=== PATIENT | male | born 2000 | race African-American/Black ===

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

== ENCOUNTER 2020-05-12 17:22 | Inpatient (IN) | payer OTHER ==
[~2020-05-12 17:22] MED LIST: Iopamidol-370 76% 500 ML 1 ML ONE
[2020-05-12] MEDS ORDERED: Midazolam HCl 5 mg/ml Vial ONE (17:26)
[2020-05-12] MEDS ORDERED: Boostrix 0.5 ML (Tdap) VIAL ONE (17:26)
[2020-05-12] MEDS ORDERED: PROPOFOL 0 ML ONE (17:35)
[2020-05-12] MEDS ORDERED: Propofol 1,000 MG/100 ML VIAL IV ONE (17:35)
[2020-05-12] MEDS ORDERED: Fentanyl 100 MCG/2 ML VIAL ONE (17:38)
[2020-05-12 17:45] LABS: #Basophils 0.1 thou/uL (0.0-0.2); #Eosinphils 0.1 thou/uL (0.0-0.7); #Lymphocytes 2.8 thou/uL (1.20-3.40); #Monocytes 0.3 thou/uL (0.11-0.59); #Neutrophils 13.5 thou/uL (1.40-6.50); %Basophils 0.5 % (0.0-1.0); %Eosinophils 0.5 % (0.0-10.0); %Lymphocytes 16.5 % (28.0-48.0); %Monocytes 1.9 % (0.0-4.0); %Neutrophils 80.6 % (31.0-61.0); Hemoglobin 14.3 g/dL (14.0-18.0); Mean Corpuscular HGB CONC 32.8 g/dL (32.0-36.0); Mean Corpuscular Hemoglobin 30.9 pg (25.0-35.0); Mean Corpuscular Volume 94.2 fL (78.0-98.0); Mean Platelet Volume 9.7 fL (7.4-10.4); Platelet Count 172 thou/uL (130-400); RBC Distribution Width 11.1 % (11.5-14.5); Red Blood Cell (RBC) Count 4.64 mill/uL (4.00-5.20); White Blood Cell (WBC) Count 16.8 thou/uL (4.8-10.8)
[2020-05-12] MEDS ORDERED: fentaNYL Citrate/PF 2,000 MCG in Sodium Chloride 0.9% 60 ML IV SCH ×2 (17:45→18:45)
[2020-05-12 17:52] LABS: INR-International Normal Ratio 1.3; Prothrombin Time 16.1 sec (12.0-14.7)
[2020-05-12 17:53] LABS: PTT 27.2 sec (22.9-36.1)
[2020-05-12 18:10] LABS: ALT (SGPT) 204 U/L (8-55); AST (SGOT) 284 U/L (10-45); Albumin 4.2 g/dL (3.5-5.0); Alcohol Less than 10 mg/dL (Less than 10); Alkaline Phosphatase 73 U/L (50-130); Anion Gap 16 mmol/L (10-20); BUN (Urea Nitrogen) 11 mg/dL (8.4-21.0); Calc. Creatinine Clearance 0 mL/min (70-130); Calcium 8.4 mg/dL (7.8-10.44); Carbon Dioxide 21 mmol/L (22-29); Chloride 104 mmol/L (98-107); Globulin 3.6 g/dL (2.4-3.5); Glucose 245 mg/dL (70-105); Lipase 120 U/L (8-78); Protein, Total 7.8 g/dL (6.0-8.3); Sodium 138 mmol/L (136-145)
[2020-05-12 18:11] LABS: Actual Bicarbonate (HCO3a) 20.3 mEq/L (22-28); Analyzer IN Cardio ER; Base Excess (BEa) -5.9 mEq/L (-2.0 to +3.0); CO2 Tension 42.5 mmHg (35.0-45.0); Calcium, Ionized (arterial) 1.18 mmol/L (1.12-1.30); Carboxyhemoglobin (COHb) 0.3 gm% (0.0-3.0); O2 Tension (PaO2), arterial 80.7 mmHg (80.0-100.0); Potassium - ABG Lab 3.05 mmol/L (3.70-5.30); Puncture Site RFA
[2020-05-12 18:12] LABS: ALV-art Gradient 579.175 mmHg (0-20)
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
[2020-05-12] MEDS ORDERED: Dextrose 5% in Water 1,000 ML IV PRN (18:30)
[2020-05-12] MEDS ORDERED: Insulin Regular 300 UNITS/3 ML VIAL SC PRN (18:30)
[2020-05-12] MEDS ORDERED: hydrALAZINE 20 MG/ML VIAL SLOW IVP PRN (18:30)
[2020-05-12] MEDS ORDERED: Ondansetron PF 4 MG/2 ML Vial IVP PRN (18:30)
[2020-05-12] MEDS ORDERED: Dextrose 50% Abboject 50 ML SYRINGE SLOW IVP PRN (18:30)
[2020-05-12 18:37] LABS: Potassium 2.9 mmol/L (3.5-5.1)
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
[2020-05-12] MEDS ORDERED: Ventilator Sedation Protocol FS SCH (18:45)
[2020-05-12] MEDS ORDERED: DISCONTINUE PREVIOUS NARCOTIC PAIN MEDICATIONS AND BENZODIAZEPINES FS SCH (18:45)
[2020-05-12] MEDS ORDERED: Lorazepam 2 MG/ML VIAL SLOW IVP PRN (18:45)
[2020-05-12] MEDS ORDERED: Propofol BOLUS 1,000 MG/100 ML VIAL IV PRN (18:45)
[2020-05-12] MEDS ORDERED: Morphine 2 MG/ML VIAL SLOW IVP PRN (18:45)
[2020-05-12] MEDS ORDERED: Propofol 1,000 MG/100 ML VIAL IV PRN (18:45)
[2020-05-12] MEDS ORDERED: Fentanyl BOLUS 250 ML IVPB PRN (18:45)
[2020-05-12] MEDS ORDERED: Potassium Chloride 40 MEQ in Sodium Chloride 0.9% 250 ML 250 ML IVPB SCH (19:00)
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
[2020-05-12 19:15] LABS: Lactic Acid 1.8 mmol/L (0.5-2.2)
[2020-05-12 19:16] LABS: Magnesium 1.9 mg/dL (1.7-2.2); Phosphorus 4.1 mg/dL (2.3-4.7)
[2020-05-12 19:20] LABS: Bilirubin Negative (Negative); Blood, Urine 3+ (Negative); Clarity Turbid (Clear); Glucose, Urine (Dipstick) 150 mg/dL (Negative); Ketone, Urine 10 mg/dL (Negative); Leukocyte Negative Leu/uL (Negative); Nitrite Negative (Negative); Protein, Urine (Dipstick) 70 mg/dL (Neg-Trace); RBC/HPF Greater than 50 HPF (0-3); Squamous Epithelial None Seen HPF (0-3); Urobilinogen Normal mg/dL (Less than 2); pH, Urine 5.5 (5.0-9.0)
[2020-05-12 19:30] LABS: Bacteria/HPF 1+ HPF (None Seen); Specific Gravity, Urine 1.054 (1.002-1.036); Yeast-Budding None Seen HPF (None Seen)
[2020-05-12] MEDS: Sodium Chloride 0.9% 1,000 ML IV SCH (19:32)
[2020-05-12] MEDS ORDERED: Vecuronium 10 MG VIAL ONE (19:45)
[2020-05-12 20:14] LABS: SARS-CoV-2 NAA Rapid Test Not Detected (NotDetected)
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
[2020-05-12] MEDS: Famotidine/PF 20 mg/2ml Vial SLOW IVP SCH (21:11)
[2020-05-12 21:21] LABS: Bacteria/HPF None Seen HPF (None Seen); Bilirubin Negative (Negative); Blood, Urine 3+ (Negative); Clarity Turbid (Clear); Glucose, Urine (Dipstick) 30 mg/dL (Negative); Ketone, Urine Trace mg/dL (Negative); Leukocyte Negative Leu/uL (Negative); Nitrite Negative (Negative); Protein, Urine (Dipstick) 50 mg/dL (Neg-Trace); RBC/HPF Greater than 50 HPF (0-3); Squamous Epithelial None Seen HPF (0-3); Urobilinogen Normal mg/dL (Less than 2); pH, Urine 5.5 (5.0-9.0)
[2020-05-12 21:22] LABS: Specific Gravity, Urine Greater than 1.060 (1.002-1.036)
[2020-05-12 21:23] LABS: Urine Culture Reflex Yes Yes
[2020-05-12 21:25] LABS: Amphetamine Not Detected (NotDetected); Barbiturates Screen Not Detected (NotDetected); Benzodiazepine Screen Not Detected (NotDetected); Cocaine Metabolite Screen Not Detected (NotDetected); Medtox Control Line Valid? VALID (VALID); Medtox Reader # READER 4; Methadone Not Detected (NotDetected); Methamphetamine Not Detected (NotDetected); Opiate Screen Not Detected (NotDetected); Oxycodone Screen Not Detected (NotDetected); Phencyclidine (PCP) Not Detected (NotDetected); THC/Cannabinoid Screen Not Detected (NotDetected); Tricyclic Screen Not Detected (NotDetected)
[2020-05-13 01:57] VITALS: BMI 23.2
[2020-05-13 04:17] LABS: #Lymphocytes 1.6 thou/uL (1.20-3.40); #Monocytes 0.6 thou/uL (0.11-0.59); #Neutrophils 8.5 thou/uL (1.40-6.50); %Basophils 0.3 % (0.0-1.0); %Eosinophils 0.3 % (0.0-10.0); %Lymphocytes 14.5 % (28.0-48.0); %Monocytes 5.5 % (0.0-4.0); %Neutrophils 79.4 % (31.0-61.0); Hemoglobin 12.4 g/dL (14.0-18.0); Mean Corpuscular HGB CONC 34.2 g/dL (32.0-36.0); Mean Corpuscular Hemoglobin 31.7 pg (25.0-35.0); Mean Corpuscular Volume 92.6 fL (78.0-98.0); Mean Platelet Volume 10.1 fL (7.4-10.4); Platelet Count 137 thou/uL (130-400); RBC Distribution Width 11.1 % (11.5-14.5); Red Blood Cell (RBC) Count 3.91 mill/uL (4.00-5.20); White Blood Cell (WBC) Count 10.7 thou/uL (4.8-10.8)
[2020-05-13 04:34] LABS: Lactic Acid 1.2 mmol/L (0.5-2.2)
[2020-05-13 05:10] LABS: Anion Gap 14 mmol/L (10-20); BUN (Urea Nitrogen) 10 mg/dL (8.4-21.0); Calc. Creatinine Clearance 148 mL/min (70-130); Calcium 8.1 mg/dL (7.8-10.44); Carbon Dioxide 21 mmol/L (22-29); Chloride 108 mmol/L (98-107); Glucose 108 mg/dL (70-105); Magnesium 1.7 mg/dL (1.7-2.2); Potassium 3.8 mmol/L (3.5-5.1); Sodium 139 mmol/L (136-145)
--- NOTE | 2020-05-13 07:51 | CT ---
PRELIMINARY REPORT/DIRECT RADIOLOGY/EMERGENCY AFTER HOURS PROCEDURE: This report was discussed with Miguel Palacio RN by Tommy Matthews on May 13, 2020 04:57:00 WASTE REDUCTION COORDINATOR . Addendum electronically signed by Tommy Matthews on May 13, 2020 4:57:24 AM WASTE REDUCTION COORDINATOR EXAM: CT Head Without Intravenous Contrast. CLINICAL HISTORY: F/U [facility] TECHNIQUE: Axial computed tomography images of the head/brain without intravenous contrast. COMPARISON: CT\SR - CT BRAIN WO CON - 05/12/2020 05:48 PM WASTE REDUCTION COORDINATOR FINDINGS: BRAIN: Focal hyperdensity identified in the right frontal gyrus slightly more pronounced as compared to the previous examination. No midline shift or mass-effect is seen. The brainstem and cerebellum appear within normal limits. No significant volume loss is identified. VENTRICLES: No hydrocephalus. ORBITS: The orbits are unremarkable. SINUSES AND MASTOIDS: Mucosal sinus disease in the ethmoid and sphenoid sinuses. The remainder of th e sinuses and mastoid air cells appear clear. SOFT TISSUES: No significant facial or scalp soft tissue swelling evident. No radiopaque foreign body is seen. BONES: No acute skull fracture. IMPRESSION: Small subarachnoid hemorrhage in the right frontal gyrus, slightly more pronounced as com pared to the previous examination. Continued follow-up recommended. ELECTRONICALLY SIGNED BY: Andres Dale MD May 13, 2020 4:50:54 AM WASTE REDUCTION COORDINATOR FINAL REPORT CT BRAIN WITHOUT CONTRAST: History: Trauma. Subarachnoid hemorrhage. Comparison: CT brain prior day. Findings/impression: Concordant with the initial report. Similar right occipital condylar fracture. Transcribed Date/Time: 05/13/2020 8:06 AM
[2020-05-13] MEDS: Famotidine/PF 20 mg/2ml Vial SLOW IVP SCH ×2 (08:00→21:18)
[2020-05-13] MEDS ORDERED: Magnesium 2 GM/50 ML 2 GM in Premix Bag 1 BAG IVPB SCH (08:00)
[2020-05-13] MEDS ORDERED: Potassium Phosphate 15 MMOL in Sodium Chloride 0.9% 250 ML 250 ML IVPB SCH (08:00)
--- NOTE | 2020-05-13 08:21 | RAD ---
XR Chest 1 View Portable History: Chest tube Comparison: CT exam prior day Findings: Right thoracostomy tube in good position with tip near the apex. Pulmonary contusion or pne umothorax. Endotracheal tube tip at the clavicular level. Enteric tube tip below diaphragm although out of field of view. Impression: No significant pneumothorax post tube placement with partial resolution of the right hydr opneumothorax.
[2020-05-13 08:24] LABS: Actual Bicarbonate (HCO3a) 22.4 mEq/L (22-28); Base Excess (BEa) -0.7 mEq/L (-2.0 to +3.0); Calcium, Ionized (arterial) 1.14 mmol/L (1.12-1.30); Carboxyhemoglobin (COHb) 0.3 gm% (0.0-3.0); Hemoglobin (Hb) 12.7 g/dL (11.4-15.4); Potassium - ABG Lab 3.53 mmol/L (3.70-5.30); pH, Arterial 7.46 (7.35-7.45)
[2020-05-13 08:26] LABS: Puncture Site RRA
[2020-05-13] MEDS: Sodium Chloride 0.9% 1,000 ML IV SCH ×3 (09:00→17:08)
[2020-05-13] MEDS ORDERED: traMADol HCl 50 MG TAB PO PRN ×2 (09:47)
[2020-05-13] MEDS ORDERED: Morphine 4 MG/ML VIAL SLOW IVP PRN (09:49)
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
[2020-05-13] MEDS: Acetaminophen 325 MG TAB PO SCH ×3 (10:52→21:47)
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
[2020-05-13] MEDS: Gabapentin 300 MG CAP PO SCH ×2 (17:01→21:18)
[2020-05-13] MEDS: traMADol HCl 50 MG TAB PO SCH (17:53)
[2020-05-13] MEDS: Senokot S 8.6-50 MG TAB PO SCH (21:49)
[2020-05-13] MEDS: traMADol HCl 50 MG TAB PO PRN (21:51)
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
[2020-05-14] MEDS: Sodium Chloride 0.9% 1,000 ML IV SCH ×2 (02:24→04:53)
[2020-05-14] MEDS: traMADol HCl 50 MG TAB PO SCH ×6 (02:27→23:55)
[2020-05-14] MEDS: Acetaminophen 325 MG TAB PO SCH ×4 (05:09→21:55)
[2020-05-14 06:45] LABS: #Eosinphils 0.1 thou/uL (0.0-0.7); #Monocytes 0.5 thou/uL (0.11-0.59); #Neutrophils 6.8 thou/uL (1.40-6.50); %Basophils 0.2 % (0.0-1.0); %Eosinophils 1.3 % (0.0-10.0); %Lymphocytes 12.1 % (28.0-48.0); %Monocytes 5.6 % (0.0-4.0); %Neutrophils 80.7 % (31.0-61.0); Hemoglobin 10.7 g/dL (14.0-18.0); Mean Corpuscular HGB CONC 33.1 g/dL (32.0-36.0); Mean Corpuscular Hemoglobin 31.3 pg (25.0-35.0); Mean Corpuscular Volume 94.6 fL (78.0-98.0); Mean Platelet Volume 9.2 fL (7.4-10.4); Platelet Count 98 thou/uL (130-400); RBC Distribution Width 10.9 % (11.5-14.5); Red Blood Cell (RBC) Count 3.42 mill/uL (4.00-5.20); White Blood Cell (WBC) Count 8.5 thou/uL (4.8-10.8)
[2020-05-14 07:01] LABS: Phosphorus 2.9 mg/dL (2.3-4.7)
[2020-05-14 07:04] LABS: ALT (SGPT) 113 U/L (8-55); AST (SGOT) 92 U/L (10-45); Albumin 3.3 g/dL (3.5-5.0); Alkaline Phosphatase 56 U/L (50-130); Anion Gap 12 mmol/L (10-20); BUN (Urea Nitrogen) 6 mg/dL (8.4-21.0); Bilirubin, Total 1.1 mg/dL (0.2-1.2); Calc. Creatinine Clearance 163 mL/min (70-130); Carbon Dioxide 25 mmol/L (22-29); Chloride 103 mmol/L (98-107); Glucose 136 mg/dL (70-105); Potassium 4.1 mmol/L (3.5-5.1); Protein, Total 6.3 g/dL (6.0-8.3); Sodium 136 mmol/L (136-145)
[2020-05-14] MEDS: traMADol HCl 50 MG TAB PO PRN (07:46)
[2020-05-14] MEDS: Gabapentin 300 MG CAP PO SCH ×3 (08:05→21:52)
[2020-05-14] MEDS: Famotidine/PF 20 mg/2ml Vial SLOW IVP SCH ×2 (08:05→21:51)
[2020-05-14] MEDS: Senokot S 8.6-50 MG TAB PO SCH ×2 (08:05→21:51)
[2020-05-14] MEDS: Polyethylene Glycol 3350 17 GM Packet PO SCH (08:06)
[2020-05-14] MEDS: Cyclobenzaprine 10 MG TAB PO PRN ×2 (08:10→23:44)
--- NOTE | 2020-05-14 08:11 | RAD ---
Portable frontal chest radiograph: 05/14/2020 COMPARISON: 05/13/2020 HISTORY: Right chest tube FINDINGS: The endotracheal tube and nasogastric tube have been removed. Stable right chest tube and l eft vascular catheter. New mild hazy alveolar opacity noted within the medial left lung base. There is dense consolidative change within the mid and lower right hemithorax, worsened. There is a displac ed fracture of the midshaft right clavicle. There is pleural thickening in the right lung apex with pleural density in the right lung base as well. Stable small volume subcutaneous gas within the right chest wall. Multiple posterior medial right rib fractures, not optimally assessed on this exam. IMPRESSION: Worsening aeration within the mid and lower right hemithorax. Minimal new airspace diseas e in the medial left base. Stable lines and tubes.
[2020-05-14] MEDS ORDERED: PHOS-NAK 1 PKT PACK PO SCH (09:00)
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
[2020-05-14] MEDS: Lidocaine 5% Patch TD SCH (16:37)
--- NOTE | 2020-05-15 00:58 | PRG ---
DATE OF SERVICE: 05/14/2020 SUBJECTIVE: The patient was seen during evening rounds, awake, alert, playing on his iPad. The patient reports moderate pain in chest and ribs. The patient is still able to pull only 500 mL on his incentive spirometer. The patient reports increased pain when coughing. When using his incentive spirometer, it did cause the patient to cough deeply. The patient continues to cough up some blood. The patient was started on lidocaine patches earlier today. The patient's right chest tube is to suction. OBJECTIVE: VITAL SIGNS: Stable, afebrile. The patient is requiring 2 L nasal cannula. Urinary output is adequate for age and weight. PLAN: Continue supportive care and pain regimen. We will schedule the patient's tramadol 100 mg. If this does not control patient's pain, we may need to start patient on Tylenol with Codeine. Aggressive pulmonary toilet with the use of incentive spirometer every hour x10 while awake. Repeat labs in the morning. Increase physical and occupational therapy. Job ID: [id number]
[2020-05-15] MEDS: Lidocaine Patch Removal TOP SCH (03:00)
[2020-05-15] MEDS: Acetaminophen 325 MG TAB PO SCH ×4 (03:24→22:04)
[2020-05-15] MEDS: traMADol HCl 50 MG TAB PO SCH ×4 (06:22→23:11)
[2020-05-15 07:24] LABS: Hemoglobin 11.1 g/dL (14.0-18.0); Mean Corpuscular HGB CONC 33.6 g/dL (32.0-36.0); Mean Corpuscular Hemoglobin 31.7 pg (25.0-35.0); Mean Corpuscular Volume 94.3 fL (78.0-98.0); Mean Platelet Volume 9.7 fL (7.4-10.4); Platelet Count 104 thou/uL (130-400); RBC Distribution Width 10.8 % (11.5-14.5); Red Blood Cell (RBC) Count 3.51 mill/uL (4.00-5.20); White Blood Cell (WBC) Count 6.7 thou/uL (4.8-10.8)
[2020-05-15 07:45] LABS: Anion Gap 15 mmol/L (10-20); BUN (Urea Nitrogen) 8 mg/dL (8.4-21.0); Calc. Creatinine Clearance 169 mL/min (70-130); Calcium 8.7 mg/dL (7.8-10.44); Carbon Dioxide 28 mmol/L (22-29); Chloride 99 mmol/L (98-107); Glucose 94 mg/dL (70-105); Magnesium 1.9 mg/dL (1.7-2.2); Phosphorus 3.9 mg/dL (2.3-4.7); Potassium 4.5 mmol/L (3.5-5.1); Sodium 137 mmol/L (136-145)
[2020-05-15 08:32] LABS: Band 10 % (5-11); Eosinophils 4 % (0-10); Lymphocytes 22 % (28-48); Monocytes 7 % (0-4); Neutrophil 57 % (31-61); Platelet Morphology Comment Appears Decreased; Polychromasia SLIGHT = 2-3 cells (100X) (0-2/hpf)
[2020-05-15 08:33] LABS: MDiff Complete? YES
[2020-05-15] MEDS: Gabapentin 300 MG CAP PO SCH ×3 (08:49→22:00)
[2020-05-15] MEDS: Senokot S 8.6-50 MG TAB PO SCH ×2 (08:52→22:00)
[2020-05-15] MEDS: Polyethylene Glycol 3350 17 GM Packet PO SCH (08:52)
[2020-05-15] MEDS: Famotidine 20 MG TAB PO SCH ×2 (08:52→22:00)
--- NOTE | 2020-05-15 09:02 | RAD ---
PORTABLE CHEST: Date: 05/15/2020 HISTORY: Pulmonary contusion. COMPARISON: 05/14/2020 exam. FINDINGS: Heart size appears slightly enlarged. Some of this is related just to the lordotic technique. The ple ural and parenchymal lung changes in the right base are stable. The right chest tube is unchanged in position. Pleural changes in the right apex are similar to the previous exam. IMPRESSION: Stable overall exam. POS: OFF
[2020-05-15] MEDS ORDERED: Ibuprofen 600 MG TAB PO SCH (14:00)
[2020-05-15] MEDS: Lidocaine 5% Patch TD SCH (15:18)
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
[2020-05-15] MEDS: Ibuprofen 200 MG TAB PO SCH (22:00)
[2020-05-16] MEDS: Acetaminophen 325 MG TAB PO SCH ×4 (04:41→21:08)
[2020-05-16] MEDS: Lidocaine Patch Removal TOP SCH (04:46)
[2020-05-16] MEDS: Ibuprofen 200 MG TAB PO SCH ×3 (06:33→21:09)
[2020-05-16] MEDS: traMADol HCl 50 MG TAB PO SCH ×4 (06:34→23:20)
[2020-05-16] MEDS: Gabapentin 300 MG CAP PO SCH ×3 (08:50→20:20)
[2020-05-16] MEDS: Polyethylene Glycol 3350 17 GM Packet PO SCH (08:50)
[2020-05-16] MEDS: Senokot S 8.6-50 MG TAB PO SCH ×2 (08:50→20:20)
[2020-05-16] MEDS: Famotidine 20 MG TAB PO SCH (08:51)
--- NOTE | 2020-05-16 09:15 | RAD ---
CHEST 1 VIEW: Date: 05/16/2020 INDICATION: History of respiratory failure and tracheostomy. COMPARISON: Prior exam dated 05/15/2020. IMPRESSION: Pleural parenchymal opacity in the right lung base is stable. Left subclavian central venous catheter is unchanged. Right sided thoracostomy tube is unchanged. No large right-sided pneumothorax is evide nt. Left lung is clear. Osseous structures are unchanged. POS: [facility]
[2020-05-16] MEDS: Lidocaine 5% Patch TD SCH (15:07)
--- NOTE | 2020-05-16 16:15 | RAD ---
EXAM: CHEST ONE VIEW: 05/16/20 HISTORY: Follow-up chest tube removal. COMPARISON: 05/16/20 FINDINGS: There has been removal of the right chest tube. Small residual right apical pneumothorax. Left subcla vian catheter. Stable abnormal opacity changes in the right mid and lower lung zone. Comminuted displ aced mid lateral right clavicle fracture. IMPRESSION: 1. Right chest removal with small residual right apical pneumothorax. 2. Stable parenchymal changes in the right mid and lower lung zone. 3. Stable comminuted right clavicle fracture with inferior overriding. POS: OFF
--- NOTE | 2020-05-16 18:21 | CT ---
EXAM: CT brain without contrast HISTORY: Subarachnoid hemorrhage and increasing headache COMPARISON: 05/13/2020 TECHNIQUE: Multiple contiguous axial images were obtained and a CT of the brain without contrast. FINDINGS: There is a stable small amount of hyperdensity within one of the right frontal gyri consist ent with a small amount of subarachnoid hemorrhage. No intraventricular hemorrhage is seen. No midline shift or downward herniation is seen. There is a stable fracture of the right occipital condyle. Fluid is seen in the right sphenoid sinus and within some of the ethmoid air cells bilaterally. IMPRESSION: Stable subarachnoid hemorrhage.
[2020-05-16 18:50] LABS: #Eosinphils 0.1 thou/uL (0.0-0.7); #Lymphocytes 0.5 thou/uL (1.20-3.40); #Monocytes 0.4 thou/uL (0.11-0.59); #Neutrophils 4.3 thou/uL (1.40-6.50); %Basophils 0.3 % (0.0-1.0); %Eosinophils 1.3 % (0.0-10.0); %Lymphocytes 10.1 % (28.0-48.0); %Monocytes 7.7 % (0.0-4.0); %Neutrophils 80.7 % (31.0-61.0); Hemoglobin 10.6 g/dL (14.0-18.0); Mean Corpuscular HGB CONC 33.2 g/dL (32.0-36.0); Mean Corpuscular Volume 93.2 fL (78.0-98.0); Mean Platelet Volume 8.8 fL (7.4-10.4); Platelet Count 138 thou/uL (130-400); RBC Distribution Width 10.9 % (11.5-14.5); Red Blood Cell (RBC) Count 3.43 mill/uL (4.00-5.20); White Blood Cell (WBC) Count 5.3 thou/uL (4.8-10.8)
[2020-05-16] MEDS: Cyclobenzaprine 10 MG TAB PO PRN (20:21)
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
[2020-05-17] MEDS: Lidocaine Patch Removal TOP SCH (03:00)
[2020-05-17] MEDS: Acetaminophen 325 MG TAB PO SCH ×2 (03:22→11:08)
[2020-05-17 05:59] LABS: #Eosinphils 0.2 thou/uL (0.0-0.7); #Lymphocytes 1.1 thou/uL (1.20-3.40); #Monocytes 0.6 thou/uL (0.11-0.59); #Neutrophils 3.1 thou/uL (1.40-6.50); %Basophils 0.6 % (0.0-1.0); %Eosinophils 3.5 % (0.0-10.0); %Lymphocytes 21.7 % (28.0-48.0); %Monocytes 11.4 % (0.0-4.0); %Neutrophils 62.7 % (31.0-61.0); Hemoglobin 10.6 g/dL (14.0-18.0); Mean Corpuscular Hemoglobin 30.6 pg (25.0-35.0); Mean Corpuscular Volume 92.8 fL (78.0-98.0); Mean Platelet Volume 8.7 fL (7.4-10.4); Platelet Count 164 thou/uL (130-400); Red Blood Cell (RBC) Count 3.45 mill/uL (4.00-5.20)
[2020-05-17] MEDS: Ibuprofen 200 MG TAB PO SCH ×2 (06:27→13:27)
[2020-05-17] MEDS: traMADol HCl 50 MG TAB PO SCH ×2 (06:28→11:08)
[2020-05-17 06:29] LABS: Anion Gap 10 mmol/L (10-20); BUN (Urea Nitrogen) 16 mg/dL (8.4-21.0); Calc. Creatinine Clearance 167 mL/min (70-130); Calcium 8.9 mg/dL (7.8-10.44); Carbon Dioxide 31 mmol/L (22-29); Chloride 98 mmol/L (98-107); Glucose 106 mg/dL (70-105); Magnesium 2.1 mg/dL (1.7-2.2); Phosphorus 3.9 mg/dL (2.3-4.7); Potassium 4.3 mmol/L (3.5-5.1); Sodium 135 mmol/L (136-145)
[2020-05-17] MEDS: Polyethylene Glycol 3350 17 GM Packet PO SCH (08:26)
[2020-05-17] MEDS: Gabapentin 300 MG CAP PO SCH ×2 (08:26→13:57)
[2020-05-17] MEDS: Senokot S 8.6-50 MG TAB PO SCH (08:26)
[2020-05-17 08:36] VITALS: TEMP 98.5
[2020-05-17 11:57] VITALS: BP 133/75
[2020-05-17] MEDS: Lidocaine 5% Patch TD SCH (13:57)
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
== END 2020-05-17 14:00 | DRG 963 ==
LOC: ERS 17:22 → CCU 18:07 → SJJU 05-13 16:24
PROVIDERS: ADMIT Surgery; ATTEND Surgery
PROC: 0BH17EZ Insertion of Endotracheal Airway into Trachea, Via Natural or Artificial Opening (ICD-10-PCS; principal; 2020-05-12)
PROC: 5A1935Z Respiratory Ventilation, Less than 24 Consecutive Hours (ICD-10-PCS; 2020-05-12)
PROC: 0W9930Z Drainage of Right Pleural Cavity with Drainage Device, Percutaneous Approach (ICD-10-PCS; 2020-05-12)
PROC: 02HV33Z Insertion of Infusion Device into Superior Vena Cava, Percutaneous Approach (ICD-10-PCS; 2020-05-12)
DX: S27.0XXA Traumatic pneumothorax, initial encounter (principal); S06.6X9A Traumatic subarachnoid hemorrhage with loss of consciousness of unspecified duration, initial encounter; J96.00 Acute respiratory failure, unspecified whether with hypoxia or hypercapnia; R40.20 Unspecified coma; S22.41XA Multiple fractures of ribs, right side, initial encounter for closed fracture; S36.113A Laceration of liver, unspecified degree, initial encounter; S27.321A Contusion of lung, unilateral, initial encounter; E87.2 Acidosis; D62 Acute posthemorrhagic anemia; S37.011A Minor contusion of right kidney, initial encounter; S02.113A Unspecified occipital condyle fracture, initial encounter for closed fracture; J98.4 Other disorders of lung; E87.6 Hypokalemia; S42.021A Displaced fracture of shaft of right clavicle, initial encounter for closed fracture; E83.39 Other disorders of phosphorus metabolism; E83.42 Hypomagnesemia; R73.9 Hyperglycemia, unspecified; R40.2422 Glasgow coma scale score 9-12, at arrival to emergency department; Z20.828 Contact with and (suspected) exposure to other viral communicable diseases; V89.2XXA Person injured in unspecified motor-vehicle accident, traffic, initial encounter
CPT/HCPCS: 0240U; 31624; 36415; 36416; 36600; 51702; 70450; 70486; 70498; 71045; 71260; 72125; 72170; 74177; 80048; 80053; 80306; 80307; 81003; 81015; 82805; 83605; 83690; 83735; 84100; 85007; 85025; 85027; 85610; 85730; 86850; 86900; 86901; 87040; 87086; 90471; 90715; 93005; 94002; 94003; 94640; 94760; 96365; 96375; 96376; 99292; G0390; J0690; J1815; J2250; J2270; J2405; J2704; J3010; J3475; J3480; J3490; J7050; J7620; Q9967; S0028

== ENCOUNTER 2020-05-31 08:40 | Outpatient (CLI) | payer OTHER ==
--- NOTE | 2020-05-31 10:47 | RAD ---
CHEST 2 VIEWS: Date: 05/31/2020 HISTORY: Follow-up chest tube removal. FINDINGS: Heart size is normal. The left lung is clear. No evidence for pneumothorax. There is abnormal somewha t circumscribed homogeneous opacity changes in the right lower lobe. Given the circumscribed appearan ce of some of this density, this could represent some loculated pleural fluid, as well as some contin ued resolving pulmonary parenchymal disease from extensive prior contusion. IMPRESSION: Some persistent abnormal opacity changes in the right lower lobe, but showing considerable improvemen t. No pneumothorax. Stable left chest. Consider another short-term follow-up in 3-4 weeks. POS: AH
--- NOTE | 2020-05-31 10:52 | RAD ---
CERVICAL SPINE 4 VIEWS: Date: 05/31/2020 HISTORY: Follow-up occipital condyle fracture. Correlation made to CT cervical spine dated 05/12/2020 which described a fracture of the right occipi krys condyle. FINDINGS: The cervical vertebra maintain normal height and alignment. Disc spaces are preserved. No abnormality identified. The occipital condyle fracture described on prior CT is not apparent on this exam. IMPRESSION: Unremarkable cervical spine. POS: [facility]
== END 2020-05-31 08:41 | disposition home or self-care (01) ==
LOC: BICRAD 08:40
PROVIDERS: ATTEND Surgery
DX: S02.113A Unspecified occipital condyle fracture, initial encounter for closed fracture (principal); V89.2XXA Person injured in unspecified motor-vehicle accident, traffic, initial encounter
CPT/HCPCS: 71046; 72040

== ENCOUNTER 2020-06-04 07:47 | Outpatient (CLI) | payer OTHER ==
[2020-06-04 18:09] LABS: SARS-CoV-2 MS2 Positive; SARS-CoV-2 N Gene Negative; SARS-CoV-2 S Gene Negative; SARS-CoV-2 by NAA Not Detected (NotDetected); SARS-CoV-2 orf1ab Negative
== END 2020-06-04 07:48 | disposition home or self-care (01) ==
LOC: LABBT 07:47
PROVIDERS: ATTEND Orthopaedic Surgery
DX: Z01.812 Encounter for preprocedural laboratory examination (principal); Z20.822 Contact with and (suspected) exposure to COVID-19; S42.021A Displaced fracture of shaft of right clavicle, initial encounter for closed fracture
CPT/HCPCS: 87635; U0003

== ENCOUNTER 2020-06-07 10:08 | Day surgery (SDC) | payer OTHER ==
[2020-06-05 13:44] VITALS: BMI 22.4
[2020-06-07] MEDS ORDERED: Fentanyl 100 MCG/2 ML VIAL ONE (11:20)
[2020-06-07] MEDS ORDERED: Lidocaine 1% PF 5 ML VIAL ONE (12:07)
[2020-06-07] MEDS ORDERED: PROPOFOL 200 MG/20 ML VIAL ONE (12:07)
[2020-06-07] MEDS ORDERED: Rocuronium Bromide 10 MG/ML (10ML VIAL) ONE (12:07)
[2020-06-07] MEDS ORDERED: Dexamethasone 20 MG/5 ML VIAL ONE (12:07)
[2020-06-07] MEDS ORDERED: Ondansetron PF 4 MG/2 ML Vial ONE (12:07)
[2020-06-07] MEDS ORDERED: PHENYLEPHRINE-NS 100 MCG/ML 10 ML SYRINGE ONE (12:07)
[2020-06-07] MEDS ORDERED: Ketorolac Tromethamine 30 MG/ML VIAL ONE (12:07)
[2020-06-07] MEDS ORDERED: Bupivacaine PF 0.5% 30 ML VIAL ONE (12:48)
[2020-06-07] MEDS ORDERED: EPINEPHrine 1 MG/ML AMP ONE (12:48)
[2020-06-07] MEDS ORDERED: SUGAMMADEX SODIUM 200 MG/2 ML VIAL ONE (13:44)
--- NOTE | 2020-06-07 14:42 | RAD ---
RIGHT CLAVICLE TWO VIEWS: 06/07/20 HISTORY: Postop. These are C-arm views showing open reduction and internal fixation of a clavicle fracture with plate and screws. IMPRESSION: Open reduction internal fixation of clavicular fracture with plate and screws. POS: [facility]
--- NOTE | 2020-06-07 14:49 | OP ---
DATE OF PROCEDURE: 06/07/2020 PREOPERATIVE DIAGNOSIS: Midshaft fracture of the right clavicle. POSTOPERATIVE DIAGNOSIS: Midshaft fracture of the right clavicle. PROCEDURE PERFORMED: Open reduction and internal fixation, midshaft fracture, right clavicle. ANESTHESIA: General. TECHNIQUE: The patient was given preoperative IV antibiotics, taken to the operating room, placed in supine position. Satisfactory general anesthesia was performed. The patient was placed in a beach chair position and the right clavicular area was sterilely prepped and draped in usual fashion. An incision was made along the area of the clavicle approximately 4 inches in length and sharp dissection was made down to the shaft fractures. The proximal aspect of the clavicular shaft was displaced superiorly. The distal shaft was inferiorly and there was also butterfly fragment anterior to both of these. The scar tissue was loosened and incised and the fractures were then initially held reduced with a 2.7 cortical screw in a lag fashion. A six-hole [employer]ynthe[employer] clavicular plate was then placed over the superior portion of the clavicle and was internally fixed using 3.5 cortical screws on each side of the fracture and then three additional locking screws. The large butterfly fragment was freed up. The previous screw that was used in lag fashion was removed and a butterfly fragment was placed in its anatomic position and held in place using two 2.7 cortical screws in a lag fashion. Some of the bone fragments that were removed prior to internal fixation were cleaned up and placed into the fracture site for bone grafting. The wound was copiously irrigated with antibiotic solution. It was then closed using #1 Vicryl for the fascia and periosteum over the clavicle and then 2-0 Vicryl for the fat and subcutaneous tissue, and skin was closed with 3-0 Rapide. The wound was then infiltrated with a total of 20 mL 0.5% Marcaine with epinephrine. Sterile dressing was applied. The patient was awakened, extubated, and transferred to recovery room in stable condition. ESTIMATED BLOOD LOSS: 40 mL. COMPLICATIONS: None. Job ID: [id number]
[2020-06-07] MEDS ORDERED: HYDROcodone/Acetaminophen 5/325 mg Tablet ONE (15:13)
== END 2020-06-07 15:40 | disposition home or self-care (01) ==
LOC: SDC 10:08
PROVIDERS: ATTEND Orthopaedic Surgery
PROC: 0PS904Z Reposition Right Clavicle with Internal Fixation Device, Open Approach (ICD-10-PCS; principal; 2020-06-07)
DX: S42.021A Displaced fracture of shaft of right clavicle, initial encounter for closed fracture (principal); V89.2XXA Person injured in unspecified motor-vehicle accident, traffic, initial encounter
CPT/HCPCS: 76000; C1713; J0171; J0690; J3010; L3650; S0020

== ENCOUNTER 2020-06-22 09:33 | Outpatient (CLI) | payer OTHER ==
[2020-06-22] MEDS ORDERED: Iopamidol 370 76% 100 ML VIAL ONE (14:02)
== END 2020-06-22 09:34 | disposition home or self-care (01) ==
LOC: BICCT 09:33
PROVIDERS: ATTEND Family Medicine
DX: J94.2 Hemothorax (principal); I60.9 Nontraumatic subarachnoid hemorrhage, unspecified; S02.119D Unspecified fracture of occiput, subsequent encounter for fracture with routine healing; S12.401D Unspecified nondisplaced fracture of fifth cervical vertebra, subsequent encounter for fracture with routine healing; S36.113S Laceration of liver, unspecified degree, sequela; R91.8 Other nonspecific abnormal finding of lung field
CPT/HCPCS: 70450; 71046; 72125; 74160; Q9967

== ENCOUNTER 2020-07-27 09:29 | Outpatient (CLI) | payer OTHER ==
[2020-07-27 21:52] LABS: SARS-CoV-2 PCR by NAA Not Detected (NotDetected)
== END 2020-07-27 09:30 | disposition home or self-care (01) ==
LOC: LABBT 09:29
PROVIDERS: ATTEND Otolaryngology Plastic Surgery within the Head & Neck
DX: R13.10 Dysphagia, unspecified (principal); Z20.822 Contact with and (suspected) exposure to COVID-19
CPT/HCPCS: 87635; U0003; U0005

== ENCOUNTER 2020-07-30 09:02 | Outpatient (CLI) | payer OTHER | END 2020-07-30 09:03 | disposition home or self-care (01) | PROVIDERS: ATTEND Otolaryngology Plastic Surgery within the Head & Neck | DX: I69.191 Dysphagia following nontraumatic intracerebral hemorrhage (principal); I69.891 Dysphagia following other cerebrovascular disease; R13.10 Dysphagia, unspecified | CPT/HCPCS: 74230 ==

== ENCOUNTER 2020-10-26 15:14 | Emergency (ER) | payer SELFPAY ==
[2020-10-26] MEDS ORDERED: Ketorolac Tromethamine 30 MG/ML VIAL ONE (16:23)
== END 2020-10-26 16:48 | disposition home or self-care (01) ==
LOC: ERS 15:14
DX: M54.6 Pain in thoracic spine (principal); F17.210 Nicotine dependence, cigarettes, uncomplicated; X50.0XXA Overexertion from strenuous movement or load, initial encounter; Y99.0 Civilian activity done for income or pay
CPT/HCPCS: 96372; 99283; J1885

== ENCOUNTER 2021-08-30 08:57 | Outpatient (CLI) | payer BC | END 2021-08-30 08:58 | disposition home or self-care (01) | LOC: MRI 08:57 | PROVIDERS: ATTEND Nurse Practitioner Family | DX: M54.2 Cervicalgia (principal) | CPT/HCPCS: 72141 ==